=== PATIENT | female | born 1940 | race Caucasian/White ===

== ENCOUNTER 2023-02-02 13:46 | Inpatient (IN) | payer OTHER ==
[~2023-02-02] VITALS: Ht 160 cm; Wt 53.7 kg
[2023-02-02] MEDS ORDERED: ASCO-352 PO (14:55)
[2023-02-02] MEDS ORDERED: HONE15GE TP (14:55)
[2023-02-02] MEDS ORDERED: CINA30TA6 PO (14:55)
[2023-02-02] MEDS ORDERED: ZINC50TA65 PO (14:55)
[2023-02-02] MEDS ORDERED: HEPA50007 SQ (14:55)
[2023-02-02] MEDS ORDERED: MULT-447 PO (14:55)
[2023-02-02] MEDS ORDERED: MIDO10TA PO (14:55)
[2023-02-02] MEDS ORDERED: ASPI-1169 PO (14:55)
[2023-02-02] MEDS ORDERED: AMIN30LI2 PO (14:55)
[2023-02-02] MEDS ORDERED: ATOR20TA PO (14:55)
[2023-02-02] MEDS ORDERED: ACET-868 PO ×2 (14:55)
[2023-02-02] MEDS ORDERED: ROPI0.255 PO (14:55)
[2023-02-02] MEDS ORDERED: IV NS 0.9% 500 ML BAG IV ONE ×2 (15:30→17:30)
[2023-02-02 16:16] LABS: BASOPHILS % (AUTO) 0.3 % (0.0-2.0); EOSINOPHILS # (AUTO) 0.1 K/uL (0.0-0.7); EOSINOPHILS % (AUTO) 1.1 % (0.0-6.0); HEMATOCRIT 27 % (33-45); HEMOGLOBIN 8.5 g/dL (11.5-14.8); LYMPHOCYTES # (AUTO) 2.2 K/uL (0.8-4.8); LYMPHOCYTES % (AUTO) 20.2 % (20.0-44.0); MEAN CORPUSCULAR HEMOGLOBIN 29 PG (26.0-33.0); MEAN CORPUSCULAR HGB CONC 32 g/dl (31.0-36.0); MEAN CORPUSCULAR VOLUME 92 fL (82-100); MONOCYTES # (AUTO) 0.4 K/uL (0.1-1.30); MONOCYTES % (AUTO) 4.1 % (2.0-12.0); NEUTROPHILS # (AUTO) 8.1 K/uL (1.8-8.9); NEUTROPHILS % (AUTO) 74.3 % (43.0-81.0); PLATELET COUNT (AUTO) 219 K/uL (150-450); RED BLOOD CELL COUNT(AUTO) 2.94 MIL/uL (4.0-5.2); RED CELL DISTRIBUTION WIDTH 19.5 % (11.5-15.0); WHITE BLOOD COUNT (AUTO) 10.8 K/uL (4.3-11.0)
[2023-02-02 16:36] LABS: ALANINE AMINOTRANSFERASE 19 U/L (12-78); ALBUMIN 1.5 g/dL (3.4-5.0); ALKALINE PHOSPHATASE 239 U/L (46-116); ASPARTATE AMINOTRANSFERASE 25 U/L (15-37); BILIRUBIN,DIRECT 0.4 mg/dL (0.0-0.2); BILIRUBIN,TOTAL 0.8 mg/dL (0.2-1.0); CALCIUM, SERUM 10.2 mg/dL (8.5-10.1); CARBON DIOXIDE 33 mmol/L (21-32); CHLORIDE 99 mmol/L (98-107); CREATININE 3.5 mg/dL (0.6-1.3); GLUCOSE 79 mg/dL (74-106); POTASSIUM 5.1 mmol/L (3.5-5.1); SODIUM SERUM 139 mmol/L (136-145); UREA NITROGEN, BLOOD 40 mg/dL (7-18)
[2023-02-02 16:39] LABS: MAGNESIUM 2.1 mg/dL (1.8-2.4); PHOSPHORUS 2.8 mg/dL (2.5-4.9)
[2023-02-02] MEDS ORDERED: ONDANSETRON HCL/PF 4 MG/2 ML VIAL IVP PRN (21:30)
[2023-02-02] MEDS ORDERED: MAGNESIUM HYDROXIDE 30 ML UDC PO PRN (21:30)
[2023-02-02] MEDS ORDERED: Z GUARD REMEDY 4 OZ OINT TP PRN (21:30)
[2023-02-02] MEDS ORDERED: MAG HYDROX/AL HYDROX/SIMETH 30 ML UDC PO PRN (21:30)
[2023-02-02] MEDS ORDERED: ZOLPIDEM TARTRATE 5 MG TABLET PO PRN (21:30)
[2023-02-02] MEDS ORDERED: HYDROCORTISONE SOD SUCCINATE 100 MG/2 ML VIAL IV ONE (21:30)
[2023-02-03] VITALS (42 sets, daily range): BP systolic 63–158; BP diastolic 29–124; TEMP 98.4; O2SAT 87–100
[2023-02-03] MEDS ORDERED: PIPERACILLIN /TAZOBACTAM 3.375 G in IV D5W 50 ML IV SCH ×2
[2023-02-03] MEDS ORDERED: PIPERACI/TAZO 3.375GM/D5W 50ML PB IV ONE ×2 (01:41→12:23)
[2023-02-03 05:54] LABS: BASOPHILS # (AUTO) 0.1 K/uL (0.0-0.2); BASOPHILS % (AUTO) 0.4 % (0.0-2.0); EOSINOPHILS % (AUTO) 0.1 % (0.0-6.0); HEMATOCRIT 28 % (33-45); HEMOGLOBIN 8.7 g/dL (11.5-14.8); LYMPHOCYTES # (AUTO) 0.9 K/uL (0.8-4.8); LYMPHOCYTES % (AUTO) 5.6 % (20.0-44.0); MEAN CORPUSCULAR HEMOGLOBIN 29 PG (26.0-33.0); MEAN CORPUSCULAR HGB CONC 31 g/dl (31.0-36.0); MEAN CORPUSCULAR VOLUME 94 fL (82-100); MONOCYTES # (AUTO) 0.2 K/uL (0.1-1.30); NEUTROPHILS # (AUTO) 15.4 K/uL (1.8-8.9); NEUTROPHILS % (AUTO) 92.9 % (43.0-81.0); PLATELET COUNT (AUTO) 211 K/uL (150-450); RED BLOOD CELL COUNT(AUTO) 3.01 MIL/uL (4.0-5.2); RED CELL DISTRIBUTION WIDTH 19.8 % (11.5-15.0); WHITE BLOOD COUNT (AUTO) 16.5 K/uL (4.3-11.0)
[2023-02-03 06:06] LABS: CALCIUM, SERUM 10.2 mg/dL (8.5-10.1); CARBON DIOXIDE 28 mmol/L (21-32); CHLORIDE 99 mmol/L (98-107); CREATININE 3.7 mg/dL (0.6-1.3); GLUCOSE 91 mg/dL (74-106); POTASSIUM 5.6 mmol/L (3.5-5.1); SODIUM SERUM 134 mmol/L (136-145); UREA NITROGEN, BLOOD 45 mg/dL (7-18)
[2023-02-03 06:07] LABS: MAGNESIUM 2.2 mg/dL (1.8-2.4); PHOSPHORUS 3.8 mg/dL (2.5-4.9)
[2023-02-03] MEDS: PIPERACILLIN /TAZOBACTAM 3.375 G in IV D5W 50 ML IV SCH ×4 (06:40→23:06)
[2023-02-03] MEDS ORDERED: MIDODRINE HCL (5MG) 5 MG TABLET PO PRN (07:00)
[2023-02-03] MEDS: HEPARIN SODIUM, PORCINE 5000 UNITS/1 ML VIAL SQ SCH ×2 (10:04→21:21)
[2023-02-03] MEDS: ASPIRIN 81 MG TAB.CHEW PO SCH (11:00)
[2023-02-03] MEDS: PROSTAT (PYXIS) 30 ML UDC PO SCH ×3 (11:00→17:00)
[2023-02-03] MEDS: MULTIVIT W/MINERALS 1 TAB TABLET PO SCH (11:00)
[2023-02-03] MEDS: ASCORBIC ACID 500 MG TABLET PO SCH (11:00)
[2023-02-03] MEDS: NOREPINEPHRINE 32 MG in IV NS 0.9% 218 ML IV PRN (14:23)
[2023-02-03] MEDS: ropiniROLE 0.5 MG TABLET PO SCH (21:07)
[2023-02-03] MEDS: ATORVASTATIN 10 MG TABLET PO SCH (21:07)
[2023-02-04] VITALS (100 sets, daily range): BP systolic 55–191; BP diastolic 27–175; TEMP 97.7–98.8; O2SAT 95–100
[2023-02-04 04:55] LABS: CARBON DIOXIDE 18 mmol/L (21-32); CHLORIDE 94 mmol/L (98-107); CREATININE 3.5 mg/dL (0.6-1.3); GLUCOSE 103 mg/dL (74-106); POTASSIUM 5.3 mmol/L (3.5-5.1); SODIUM SERUM 134 mmol/L (136-145); UREA NITROGEN, BLOOD 40 mg/dL (7-18)
[2023-02-04] MEDS: PIPERACILLIN /TAZOBACTAM 3.375 G in IV D5W 50 ML IV SCH (05:13)
[2023-02-04] MEDS: NOREPINEPHRINE 32 MG in IV NS 0.9% 218 ML IV PRN ×2 (05:31→14:50)
[2023-02-04] MEDS: HEPARIN SODIUM, PORCINE 5000 UNITS/1 ML VIAL SQ SCH ×2 (09:19→21:24)
[2023-02-04] MEDS: ASCORBIC ACID 500 MG TABLET PO SCH (09:59)
[2023-02-04] MEDS ORDERED: DAKINS QUARTER STRENGTH (0.125%) 480 ML BOTTLE TOP SCH ×2 (10:00→11:00)
[2023-02-04] MEDS ORDERED: THERAHONEY GEL 1.5 OZ TUBE TP SCH (10:00)
[2023-02-04] MEDS: MULTIVIT W/MINERALS 1 TAB TABLET PO SCH (10:00)
[2023-02-04] MEDS: CINACALCET HCL 30 MG TABLET PO SCH (10:00)
[2023-02-04] MEDS: PROSTAT (PYXIS) 30 ML UDC PO SCH ×3 (10:03→16:58)
[2023-02-04] MEDS: ASPIRIN 81 MG TAB.CHEW PO SCH (10:04)
[2023-02-04] MEDS: ACETAMINOPHEN 325 MG TABLET PO PRN (13:12)
[2023-02-04] MEDS: THERAHONEY GEL 1.5 OZ TUBE TP SCH (16:53)
[2023-02-04] MEDS: DAKINS HALF STRENGTH (0.25%) 480 ML BOTTLE TOP SCH (16:55)
[2023-02-04] MEDS: PIPERACILLIN /TAZOBACTAM 2.25 G in IV D5W 50 ML IV SCH (19:26)
[2023-02-04] MEDS: ATORVASTATIN 10 MG TABLET PO SCH (21:17)
[2023-02-04] MEDS: ropiniROLE 0.5 MG TABLET PO SCH (21:17)
[2023-02-05] VITALS (98 sets, daily range): BP systolic 84–158; BP diastolic 24–80; TEMP 97.8–99.1; O2SAT 71–100
[2023-02-05 03:10] LABS: HEPATITIS B SURFACE AB Non Reactive (.)
[2023-02-05] MEDS: PIPERACILLIN /TAZOBACTAM 2.25 G in IV D5W 50 ML IV SCH ×3 (04:09→20:57)
[2023-02-05 04:45] LABS: BASOPHILS % (AUTO) 0.1 % (0.0-2.0); EOSINOPHILS % (AUTO) 0.1 % (0.0-6.0); HEMATOCRIT 21 % (33-45); LYMPHOCYTES # (AUTO) 2.3 K/uL (0.8-4.8); LYMPHOCYTES % (AUTO) 18.9 % (20.0-44.0); MEAN CORPUSCULAR HEMOGLOBIN 29 PG (26.0-33.0); MEAN CORPUSCULAR HGB CONC 31 g/dl (31.0-36.0); MEAN CORPUSCULAR VOLUME 92 fL (82-100); MONOCYTES # (AUTO) 0.7 K/uL (0.1-1.30); MONOCYTES % (AUTO) 5.4 % (2.0-12.0); NEUTROPHILS # (AUTO) 9.1 K/uL (1.8-8.9); NEUTROPHILS % (AUTO) 75.5 % (43.0-81.0); PLATELET COUNT (AUTO) 264 K/uL (150-450); RED BLOOD CELL COUNT(AUTO) 2.31 MIL/uL (4.0-5.2); RED CELL DISTRIBUTION WIDTH 19.9 % (11.5-15.0)
[2023-02-05 04:57] LABS: CALCIUM, SERUM 8.5 mg/dL (8.5-10.1); CARBON DIOXIDE 23 mmol/L (21-32); CHLORIDE 101 mmol/L (98-107); CREATININE 3.2 mg/dL (0.6-1.3); GLUCOSE 104 mg/dL (74-106); MAGNESIUM 1.7 mg/dL (1.8-2.4); PHOSPHORUS 3.9 mg/dL (2.5-4.9); SODIUM SERUM 137 mmol/L (136-145); UREA NITROGEN, BLOOD 49 mg/dL (7-18)
[2023-02-05 05:53] LABS: HEMOGLOBIN 6.6 g/dL (11.5-14.8)
[2023-02-05] MEDS: NOREPINEPHRINE 32 MG in IV NS 0.9% 218 ML IV PRN ×2 (06:07→06:11)
[2023-02-05] MEDS: ASPIRIN 81 MG TAB.CHEW PO SCH (09:00)
[2023-02-05] MEDS: HEPARIN SODIUM, PORCINE 5000 UNITS/1 ML VIAL SQ SCH ×2 (09:00→22:10)
[2023-02-05] MEDS: MULTIVIT W/MINERALS 1 TAB TABLET PO SCH (09:15)
[2023-02-05] MEDS: ASCORBIC ACID 500 MG TABLET PO SCH (09:15)
[2023-02-05] MEDS: PROSTAT (PYXIS) 30 ML UDC PO SCH ×3 (09:17→17:46)
[2023-02-05] MEDS: BACITRACIN ZINC OINT (15 GM) 15 GM TUBE TP SCH ×2 (09:44→17:47)
[2023-02-05] MEDS: DAKINS HALF STRENGTH (0.25%) 480 ML BOTTLE TOP SCH (09:44)
[2023-02-05] MEDS: THERAHONEY GEL 1.5 OZ TUBE TP SCH (09:45)
[2023-02-05] MEDS ORDERED: NEPRO VAN 237 ML CAN PO PRN (13:00)
[2023-02-05 15:13] LABS: LYMPHOCYTES % (MANUAL) 15 % (16-48); MONOCYTES % (MANUAL) 3 % (0-11.0); NEUTROPHILS % (MANUAL) 82 (42-76)
[2023-02-05 15:14] LABS: PLATELET ESTIMATE ADEQUATE
[2023-02-05] MEDS: ARGININE/GLUTAMINE/CALCIUM BMB 1 EACH POWD.PACK PO SCH (17:48)
[2023-02-05] MEDS: ACETAMINOPHEN 325 MG TABLET PO PRN (18:57)
[2023-02-05] MEDS ORDERED: PROPOFOL 100 ML IV PRN (19:30)
[2023-02-05] MEDS: ropiniROLE 0.5 MG TABLET PO SCH (21:39)
[2023-02-05] MEDS: ATORVASTATIN 10 MG TABLET PO SCH (21:40)
[2023-02-06] VITALS (56 sets, daily range): BP systolic 96–169; BP diastolic 32–71; TEMP 97.4–98.7; O2SAT 79–100
[2023-02-06 04:01] LABS: BASOPHILS % (AUTO) 0.3 % (0.0-2.0); EOSINOPHILS # (AUTO) 0.1 K/uL (0.0-0.7); EOSINOPHILS % (AUTO) 0.9 % (0.0-6.0); HEMATOCRIT 21 % (33-45); LYMPHOCYTES # (AUTO) 1.1 K/uL (0.8-4.8); MEAN CORPUSCULAR HEMOGLOBIN 29 PG (26.0-33.0); MEAN CORPUSCULAR HGB CONC 31 g/dl (31.0-36.0); MEAN CORPUSCULAR VOLUME 92 fL (82-100); MONOCYTES # (AUTO) 0.3 K/uL (0.1-1.30); MONOCYTES % (AUTO) 4.3 % (2.0-12.0); NEUTROPHILS # (AUTO) 6.5 K/uL (1.8-8.9); NEUTROPHILS % (AUTO) 80.5 % (43.0-81.0); PLATELET COUNT (AUTO) 201 K/uL (150-450); RED BLOOD CELL COUNT(AUTO) 2.28 MIL/uL (4.0-5.2); RED CELL DISTRIBUTION WIDTH 20.1 % (11.5-15.0); WHITE BLOOD COUNT (AUTO) 8.1 K/uL (4.3-11.0)
[2023-02-06 04:18] LABS: CALCIUM, SERUM 9.2 mg/dL (8.5-10.1); CARBON DIOXIDE 30 mmol/L (21-32); CHLORIDE 105 mmol/L (98-107); CREATININE 1.9 mg/dL (0.6-1.3); GLUCOSE 98 mg/dL (74-106); MAGNESIUM 1.9 mg/dL (1.8-2.4); PHOSPHORUS 2.1 mg/dL (2.5-4.9); POTASSIUM 3.3 mmol/L (3.5-5.1); SODIUM SERUM 142 mmol/L (136-145); UREA NITROGEN, BLOOD 26 mg/dL (7-18)
[2023-02-06 04:31] LABS: HEMOGLOBIN 6.6 g/dL (11.5-14.8)
[2023-02-06 04:40] LABS: BAND % (MANUAL) 4 % (0.0-5.0); BASOPHILS % (MANUAL) 0 % (0.0-2.0); EOSINOPHILS % (MANUAL) 0 % (0-4); LYMPHOCYTES % (MANUAL) 13 % (16-48); MONOCYTES % (MANUAL) 5 % (0-11.0); NEUTROPHILS % (MANUAL) 78 (42-76)
[2023-02-06 04:41] LABS: ANISOCYTOSIS 1+; HYPOCHROMASIA 1+; PLATELET ESTIMATE ADEQUATE
[2023-02-06] MEDS: PIPERACILLIN /TAZOBACTAM 2.25 G in IV D5W 50 ML IV SCH ×3 (04:41→20:41)
[2023-02-06] MEDS ORDERED: POTASSIUM CHLORIDE 20 MEQ POWDER PACKET PO ONE (08:00)
[2023-02-06] MEDS: ARGININE/GLUTAMINE/CALCIUM BMB 1 EACH POWD.PACK PO SCH ×2 (08:47→17:51)
[2023-02-06] MEDS: PROSTAT (PYXIS) 30 ML UDC PO SCH ×3 (08:50→17:52)
[2023-02-06] MEDS: ASPIRIN 81 MG TAB.CHEW PO SCH (08:51)
[2023-02-06] MEDS: CINACALCET HCL 30 MG TABLET PO SCH (08:51)
[2023-02-06] MEDS: ASCORBIC ACID 500 MG TABLET PO SCH (08:51)
[2023-02-06] MEDS: HEPARIN SODIUM, PORCINE 5000 UNITS/1 ML VIAL SQ SCH ×2 (08:52→21:00)
[2023-02-06] MEDS: MULTIVIT W/MINERALS 1 TAB TABLET PO SCH (08:52)
[2023-02-06] MEDS: BACITRACIN ZINC OINT (15 GM) 15 GM TUBE TP SCH ×2 (08:55→17:52)
[2023-02-06] MEDS: DAKINS HALF STRENGTH (0.25%) 480 ML BOTTLE TOP SCH (08:55)
[2023-02-06] MEDS: THERAHONEY GEL 1.5 OZ TUBE TP SCH (08:56)
[2023-02-06] MEDS ORDERED: K PHOS NEUTRAL 250 MG TABLET PO ONE (16:30)
[2023-02-06] MEDS: ropiniROLE 0.5 MG TABLET PO SCH ×2 (21:13→21:16)
[2023-02-06] MEDS: ATORVASTATIN 10 MG TABLET PO SCH (21:16)
[2023-02-07] VITALS (70 sets, daily range): BP systolic 60–154; BP diastolic 22–130; TEMP 97.6–98.9; O2SAT 94–100
[2023-02-07] MEDS: PIPERACILLIN /TAZOBACTAM 2.25 G in IV D5W 50 ML IV SCH ×2 (04:18→12:12)
[2023-02-07] MEDS ORDERED: NOREPINEPHRINE 32 MG in IV NS 0.9% 218 ML IV PRN (05:30)
[2023-02-07 06:00] LABS: BASOPHILS % (AUTO) 0.5 % (0.0-2.0); EOSINOPHILS # (AUTO) 0.1 K/uL (0.0-0.7); EOSINOPHILS % (AUTO) 1.9 % (0.0-6.0); HEMATOCRIT 21 % (33-45); LYMPHOCYTES # (AUTO) 1.1 K/uL (0.8-4.8); LYMPHOCYTES % (AUTO) 17.2 % (20.0-44.0); MEAN CORPUSCULAR HEMOGLOBIN 29 PG (26.0-33.0); MEAN CORPUSCULAR HGB CONC 32 g/dl (31.0-36.0); MEAN CORPUSCULAR VOLUME 92 fL (82-100); MONOCYTES # (AUTO) 0.4 K/uL (0.1-1.30); MONOCYTES % (AUTO) 5.3 % (2.0-12.0); NEUTROPHILS % (AUTO) 75.1 % (43.0-81.0); PLATELET COUNT (AUTO) 196 K/uL (150-450); RED BLOOD CELL COUNT(AUTO) 2.27 MIL/uL (4.0-5.2); RED CELL DISTRIBUTION WIDTH 19.5 % (11.5-15.0); WHITE BLOOD COUNT (AUTO) 6.6 K/uL (4.3-11.0)
[2023-02-07 06:09] LABS: CALCIUM, SERUM 9.5 mg/dL (8.5-10.1); CARBON DIOXIDE 27 mmol/L (21-32); CHLORIDE 100 mmol/L (98-107); CREATININE 2.6 mg/dL (0.6-1.3); GLUCOSE 105 mg/dL (74-106); MAGNESIUM 1.8 mg/dL (1.8-2.4); PHOSPHORUS 2.6 mg/dL (2.5-4.9); POTASSIUM 3.7 mmol/L (3.5-5.1); SODIUM SERUM 135 mmol/L (136-145); UREA NITROGEN, BLOOD 56 mg/dL (7-18)
[2023-02-07] MEDS ORDERED: NOREPINEPHRINE 4 MG/4 ML AMPUL IV ONE (06:18)
[2023-02-07 06:27] LABS: HEMOGLOBIN 6.6 g/dL (11.5-14.8)
[2023-02-07] MEDS ORDERED: IV NS 0.9% 250 ML IV PRN (07:00)
[2023-02-07] MEDS: ASPIRIN 81 MG TAB.CHEW PO SCH (08:15)
[2023-02-07] MEDS: ASCORBIC ACID 500 MG TABLET PO SCH (08:15)
[2023-02-07] MEDS: THERAHONEY GEL 1.5 OZ TUBE TP SCH (08:17)
[2023-02-07] MEDS: DAKINS HALF STRENGTH (0.25%) 480 ML BOTTLE TOP SCH (08:18)
[2023-02-07] MEDS: MULTIVIT W/MINERALS 1 TAB TABLET PO SCH (08:19)
[2023-02-07] MEDS: PROSTAT (PYXIS) 30 ML UDC PO SCH ×3 (08:19→16:25)
[2023-02-07] MEDS: ARGININE/GLUTAMINE/CALCIUM BMB 1 EACH POWD.PACK PO SCH ×2 (08:19→16:25)
[2023-02-07] MEDS: BACITRACIN ZINC OINT (15 GM) 15 GM TUBE TP SCH ×2 (08:20→16:26)
[2023-02-07] MEDS: HEPARIN SODIUM, PORCINE 5000 UNITS/1 ML VIAL SQ SCH (08:25)
[2023-02-07] MEDS ORDERED: EPOETIN ALFA (4000 UNIT) 4,000 UNIT/ML VIAL IV SCH (15:00)
[2023-02-08 02:33] LABS: ANISOCYTOSIS 1+; BAND % (MANUAL) 8 % (0.0-5.0); BASOPHILS % (MANUAL) 0 % (0.0-2.0); EOSINOPHILS % (MANUAL) 2 % (0-4); HYPOCHROMASIA 1+; LYMPHOCYTES % (MANUAL) 14 % (16-48); MONOCYTES % (MANUAL) 5 % (0-11.0); NEUTROPHILS % (MANUAL) 71 (42-76); PLATELET ESTIMATE ADEQUATE; STOMATOCYTES 1+
== END 2023-02-07 22:00 | disposition home health service (06) | DRG 871 ==
LOC: ER 13:50 → TRANSITION 02-03 06:05 → ICU 02-03 12:49 → TELE 02-06 14:25 → ICU 02-07 05:32
PROVIDERS: ADMIT Nurse Practitioner Acute Care; ATTEND Nurse Practitioner Acute Care
PROC: 5A1D70Z Performance of Urinary Filtration, Intermittent, Less than 6 Hours Per Day (ICD-10-PCS; principal; 2023-02-03)
PROC: 05HC33Z Insertion of Infusion Device into Left Basilic Vein, Percutaneous Approach (ICD-10-PCS; 2023-02-03)
PROC: 30233N1 Transfusion of Nonautologous Red Blood Cells into Peripheral Vein, Percutaneous Approach (ICD-10-PCS; 2023-02-05)
DX: A41.9 Sepsis, unspecified organism (principal); E43 Unspecified severe protein-calorie malnutrition; L89.324 Pressure ulcer of left buttock, stage 4; G93.41 Metabolic encephalopathy; I21.A1 Myocardial infarction type 2; J15.9 Unspecified bacterial pneumonia; N18.6 End stage renal disease; R65.21 Severe sepsis with septic shock; D68.59 Other primary thrombophilia; Z66 Do not resuscitate; Z20.822 Contact with and (suspected) exposure to COVID-19; F03.90 Unspecified dementia, unspecified severity, without behavioral disturbance, psychotic disturbance, mood disturbance, and anxiety; Z99.2 Dependence on renal dialysis; Z88.2 Allergy status to sulfonamides; Z88.3 Allergy status to other anti-infective agents; Z88.8 Allergy status to other drugs, medicaments and biological substances; Z79.82 Long term (current) use of aspirin; Z79.01 Long term (current) use of anticoagulants; Z79.899 Other long term (current) drug therapy; E11.22 Type 2 diabetes mellitus with diabetic chronic kidney disease; D63.1 Anemia in chronic kidney disease; Z86.73 Personal history of transient ischemic attack (TIA), and cerebral infarction without residual deficits; R13.10 Dysphagia, unspecified; Z74.01 Bed confinement status; E88.09 Other disorders of plasma-protein metabolism, not elsewhere classified; N25.0 Renal osteodystrophy; L89.150 Pressure ulcer of sacral region, unstageable; L89.310 Pressure ulcer of right buttock, unstageable; L89.626 Pressure-induced deep tissue damage of left heel; L89.616 Pressure-induced deep tissue damage of right heel; S81.812A Laceration without foreign body, left lower leg, initial encounter; X58.XXXA Exposure to other specified factors, initial encounter; Y92.9 Unspecified place or not applicable; E87.5 Hyperkalemia; E83.52 Hypercalcemia; Y95 Nosocomial condition
CPT/HCPCS: 36415; 71045-TC; 72192-TC; 80048-TC; 80076-TC; 82962-TC; 83605-TC; 83735-TC; 83970; 84100-TC; 84484-TC; 85025-TC; 85027-TC; 86706; 86850-TC; 86880-TC; 87040-TC; 87081-TC; 87340; 90935-TC; 92526; 92611-TC; 93307-TC; A4223; A6253; A6403; C9803; G0378; J1644; J1720; J2405; J2543; J7030; J7040; J7050; J7060; P9016